=== PATIENT | male | born 1955 | race Caucasian/White ===

== ENCOUNTER 2024-04-20 06:30 | Day surgery (SDC) | payer BC, SELFPAY ==
[2024-03-20 10:24] VITALS: BMI 25.4
[2024-03-20 10:33] LABS: Hematocrit 41.6 % (39.0-52.0); Hemoglobin 14.5 g/dL (13.0-18.0); Mean Corp Hgb Conc. 34.9 g/dL (33.0-37.0); Mean Corpuscular Hgb 30.1 pg (27.0-31.0); Mean Corpuscular Volume 86.3 fL (80.0-94.0); Mean Platelet Volume 9.2 fL (7.4-10.4); Platelet Count 293 10^3/uL (130-400); Red Blood Cell Count 4.82 10^6/uL (4.70-6.10); Red Cell Dist. Width 13.8 % (11.5-14.5); White Blood Cell Count 5.7 10^3/uL (4.8-10.8)
[2024-03-20 10:56] LABS: ALT (SGPT) 22 U/L (0-50); AST (SGOT) 22 U/L (17-59); Albumin 4.2 g/dl (3.5-5.0); Alkaline Phosphatase 73 U/L (38-126); Blood Urea Nitrogen 19 mg/dl (9-20); Calcium 9.3 mg/dl (8.4-10.2); Carbon Dioxide 24 mmol/L (22-30); Chloride 104 mmol/L (98-107); Estimated Creatinine Clearance 104 ml/min; Glucose 98 mg/dl (70-99); Potassium 4.1 mmol/L (3.5-5.1); Sodium 141 mmol/L (135-145); Total Bilirubin 0.6 mg/dl (0.2-1.3); eGFR > 60.00
[2024-03-20 11:56] LABS: Glycohemoglobin (HgbA1c) 5.3 % (4.0-5.6)
--- NOTE | 2024-04-06 12:28 | VNURNOTE ---
Patient is scheduled for an elective R TKA on 04/20/24- he is a same day patient with Dr Taylor. Spoke with patient prior to surgery. Introduced role of [facility] Liaison. Patient reports that he lives with his in a MULTI story home.
There are 2 steps to enter and a flight of steps to the second floor.
There is a bathroom on the charge entry. He currently functions independently. He will be getting a rolling walker and has a cane.
PCP is Dr Raines
Discussed [facility] joint protocol and post surgical plans.
Reviewed that he will have [facility] services initially and will then start outpatient PT.
Patient selects [facility] for his home care needs and will go to out pt PT on [address] for outpatient PT. Start date TBD.
Patient is in agreement with plan and states that his will be home with him. Advised to bring RW with him day of surgery. Referral placed in [facility].
Plan: [facility] per [facility] joint protocol then outpt PT
[2024-04-14 09:34] VITALS: BMI 25.4
[2024-04-20] VITALS (15 sets, daily range): BP systolic 125–159; BP diastolic 76–98; PULSE 92; O2SAT 98
--- NOTE | 2024-04-20 07:12 | W.DS.TRANS ---
DC Summary - Crm Administrator
-
Discharge Instructions:
Sleep Apnea Risk Low
Discharge Diagnosis/Procedures R TKA Dr. Taylor 04/20/24
Diet As tolerated
Activity With Walker
Driving Restrictions No driving
Bathing Restrictions OK to Shower
Other Services PT
Instructions:
Stand-Alone Forms: SDS Total Hip and Knee D/C
Changes to Home Medications: Yes
Discharge Medications:
DC Medications w/original date entered in [employer]
Co Q-10 1 dose PO DAILY 04/14/24
Joseph Revive Tumeric, Cucermin 1 dose PO DAILY 04/14/24
mupirocin 2 % topical ointment 1 applic topical BID 04/14/24
vit C-vit I-[id number] capsule 1 cap PO DAILY 04/14/24
acetaminophen 325 mg tablet (Tylenol) 650 mg (2 x 325 mg) PO QID #1 tab 04/20/24
aspirin 325 mg tablet 325 mg PO DAILY blood clot prevention #1 tab 04/20/24
dexamethasone 4 mg tablet 4 mg PO BID inflammation #6 tabs 04/20/24
docusate sodium 100 mg capsule (Colace) 100 mg PO BID stool softner #1 cap 04/20/24
magnesium hydroxide 400 mg/5 mL oral suspension (Milk of Magnesia) 30 ml PO HS PRN Constipation #1 mL 04/20/24
ondansetron 4 mg disintegrating tablet 4 mg PO Q6H PRN n/v #20 tabs 04/20/24
oxycodone 5 mg tablet 5 mg PO Q6H PRN 1 tab moderate pain, 2 tabs severe pain #30 tabs 04/20/24
sennosides 8.6 mg tablet (Senokot) 17.2 mg (2 x 8.6 mg) PO BID laxative #2 tabs 04/20/24
Home Medication Changes
aspirin 325 mg tablet 325 mg PO DAILY blood clot prevention #1 tab 04/20/24
dexamethasone 4 mg tablet 4 mg PO BID inflammation #6 tabs 04/20/24
docusate sodium 100 mg capsule (Colace) 100 mg PO BID stool softner #1 cap 04/20/24
magnesium hydroxide 400 mg/5 mL oral suspension (Milk of Magnesia) 30 ml PO HS PRN Constipation #1 mL 04/20/24
ondansetron 4 mg disintegrating tablet 4 mg PO Q6H PRN n/v #20 tabs 04/20/24
oxycodone 5 mg tablet 5 mg PO Q6H PRN 1 tab moderate pain, 2 tabs severe pain #30 tabs 04/20/24
sennosides 8.6 mg tablet (Senokot) 17.2 mg (2 x 8.6 mg) PO BID laxative #2 tabs 04/20/24
Pending Results: No
[2024-04-20] MEDS: TYLENOL 650 MG PO (07:21)
[2024-04-20] MEDS: CELEBREX 200 MG PO (07:21)
[2024-04-20] MEDS: DILAUDID 0.5 MG IV ×4 (11:48→12:30)
[2024-04-20] MEDS: DEMEROL 12.5 MG IV (11:54)
[2024-04-20] MEDS: ANCEF 5 IV (13:27)
[2024-04-20] MEDS: ROXICODONE 5 MG PO (13:29)
[2024-04-20] MEDS: ProAmatine 5 MG PO (14:52)
[2024-04-20] MEDS: FLOMAX 0.8 MG PO (14:52)
[2024-04-20] MEDS: LASIX 10 MG IV (14:53)
--- NOTE | 2024-04-20 19:38 | OR.RPT ---
Operative Report
Operative Report
Orthopaedic Surgery Operative Note
DATE OF OPERATION: 04/20/2024
PREOPERATIVE DIAGNOSES: Osteoarthritis, right knee; bone cyst right proximal tibia
POSTOPERATIVE DIAGNOSES: Same
OPERATION PERFORMED:
1) Right total knee arthroplasty (CPT 77037)
2) Intraosseous administration of analgesic (CPT 73969)
3) Autograft bone cyst proximal tibia
4) Debridement of proximal tibia synovial cyst
SURGEON: Chadwick Taylor MD
ASSISTANTS: Timothy Nascimento who helped with patient and limb positioning and retraction
ANESTHESIA: Spinal by anesthesia plus intraoperative infusion of morphine into the tibial metaphysis by Dr. Taylor
COMPLICATIONS: None.
ESTIMATED BLOOD LOSS: 30mL
DRAINS: None
TOURNIQUET TIME: 82 minutes.
IMPLANTS:
- Min Persona CR Femur, size 12
- Min Persona revision tibia base plate, size G
- Min Persona tibial stem, 75mm
- Min Persona ultracongruent articular surface, 12 mm
- All-polyethylene patellar component, size 35
- DJO [place] bone cement
INDICATIONS: The patient presented to my office with debilitating right knee pain due to osteoarthritis. We reviewed the natural history of this problem, as well as the risks, benefits, and alternatives of various treatment options. The patient
exhausted all nonoperative treatment options and wished to proceed with knee replacement surgery. The patient understood the risks which included, but were not limited to, bleeding, infection, failure to relieve pain, more pain than preop, damage to
blood vessels and nerves, need for reoperation, mechanical failure of the implants, wound healing problems, stiffness, instability, blood clot, pulmonary embolism, myocardial infarction, pneumonia, arrhythmia, CVA, and . The patient accepted
these risks and wished to proceed. All questions were answered, and informed consent was obtained. He was noted to have a cyst in the lateral tibia. MRI showed this to be c/w synovial cyst. Preoperative plan was to bypass this with a stem.
PROCEDURE IN DETAIL: The patient was identified in the preoperative holding area. The right knee was identified as the operative site. The patient was taken in the operating room and placed in a supine position on the operating table. Spinal
anesthesia was performed. IV antibiotics and tranexamic acid were administered. An SCD was placed on the left lower extremity. A well-padded tourniquet was placed on the proximal thigh. All bony prominences were well padded. The right lower
extremity was prepped and draped in the usual sterile fashion.
We performed a surgical time-out. An interarticular block was performed with local anesthetic with epinephrine. The limb was exsanguinated with an Esmarch bandage, then the tourniquet was inflated to 250 mmHg. I performed interosseous administration
of morphine-saline solution via a Jamshidi style intraosseous needle into the proximal medial tibial metaphysis as described by Keenan Ann MD. This was performed to aid in pain control. A midline skin incision was made followed by a medial
parapatellar arthrotomy. A subperiosteal peel was performed on the medial tibia. I excised part of the infrapatellar fat pad to improve our visualization as well as tissue over anterior femur. The patella was everted and the knee was flexed. I
excised the remnants of the anterior and posterior cruciate ligaments as well as tibial and femoral osteophytes with rongeurs.
A drill was used to open the femoral canal. The intramedullary distal femoral cutting guide was inserted into the femur. This was set at 5 degrees +0. This was secured into place with three pins. The cut level was checked with an latosha wing. The
distal femur was cut through the cutting guide. The IM guide was reinserted to double check that the level of resection was flush and in appropriate alignment. Lamar�s line and the transepicondylar axis were marked on the femur. The femoral
sizing guide was applied to the anterior femur. Pins were inserted, and the 4-in-1 cutting guide was applied and secured into place. The rotation was compared to Amada�s line, the transepicondylar axis, and the neutral tibia cut and was found to
be appropriate. The width was checked and found to be appropriate and lateralized on the femur. The anterior, posterior, and chamfur cuts were made.
The knee was flexed, and the extramedullary tibial cutting guide was aligned. [place] was aligned at neutral, rotation was centered on the tibial tubercle, and coronal alignment was aligned with the mechanical axis of the tibia and center of the ankle
joint. The cut height was 2mm off the medial tibia joint surface. The guide was secured into place. The MCL and LCL were protected. The tibia surface was cut. The cut surface was inspected after removal to ensure appropriate height and slope based
on the preoperative plan. The cut was checked with a drop jeremy. It was centered nicely at the ankle.
The tibial cyst was identified. It extended about 4cm deep and about 3cm wide. There was a small uncontained portion distally. Decision was made to debride and bone graft this area. The cyst was debrided with rongure and curette. The sclerotic rim
was drilled with a small drill. Autograft from the cut bone pieces from femur and tibia were obtained and made into small crutons with a rongure and bone cutter. These were gently impacted throughout the graft with a bone tamp. This turned the
uncontained defect into a contained defect.
A lamina mold capper was used to open the flexion gap, and posterior osteophytes were removed with a curved osteotome. The remnant medial and lateral meniscus were also removed. I prophylactically cauterized the lateral geniculate arteries. A 10mm
spacer block was applied to the flexion gap and was noted to be balanced medially and laterally. The knee was extended, and the block showed symmetric to extension and flexion gaps.
The tibia was exposed and sized. Rotation was set in line with the tibial tubercle and congruent with the femur. The trial was secured into place with two pins. The tibia was prepared for a 75mm stem. The trial femur was impacted into place, and a
trial articular surface was placed. The knee was taken through range of motion and noted to be stable throughout the arc of motion without gaping or excess tension. In extension, a measured resection of the patella was performed. The patella was
sized, and lug holes were drilled. A trial patella component was applied, and it was noted to track centrally throughout the arc of motion without need for further releases.
The trials were removed. The tibia keel was prepared with the punch and the drill. The bone surfaces were irrigated with sterile saline and dried. The cement was mixed in a vacuum mixer. A cement restrictor was applied to tibial canal. Cement gun
was used to apply cement to the tibial surface, the remaining portion of the cyst, and the undersurface of the tibial implant and stem. Cement was pressurized into the tibial canal and tibia surface. The tibial component was impacted into place.
Excess cement was removed. Cement was applied to the femoral surface and the femoral component. The femoral component was impacted into place, and excess cement removed. A trial articular surface was inserted, and the knee was extended while the
cement polymerized. The tourniquet was let down, and meticulous hemostasis was achieved. Dilute betadine was poured into the wound and allowed to soak for 3 minutes. The knee was irrigated with copious normal saline.
Once the cement was polymerized, the trial articular surface was removed. Any excess cement was removed. The knee was trialed, and the final articular surface was selected and inserted into the tibial locking mechanism. The knee was reduced. A fresh
drape was applied to the surgical field.
The arthrotomy was closed with 0-PDS. Once closed, an interarticular block was performed with local anesthetic with epi. The deep dermal layer was closed with 2-0 PDS, and the subcuticular skin was closed with 3-0 monocryl. A Dermabond Prineo
dressing was applied to the skin in full flexion. Once this was completely dry, a sterile waterproof dressing was applied.
The anesthesia team performed an adductor canal block in the OR. The patient awoke from anesthesia without any difficulties. The sponge and instrument counts were correct x2 at the end of the case.
Maynor Taylor MD
== END 2024-04-20 15:32 | disposition home or self-care (01) ==
LOC: SDS 06:30
PROVIDERS: ATTENDING PHYSICIAN Orthopaedic Surgery; FAMILY PHYSICIAN Family Medicine
DX: M17.11 Unilateral primary osteoarthritis, right knee (principal); M85.461 Solitary bone cyst, right tibia and fibula
CPT/HCPCS: 27447; C1776; 36415; 73560; 80053; 83036; 85027; 87070; 93005; 97162

== ENCOUNTER → 2024-11-23 11:04 | Outpatient (REF) | payer BC, SELFPAY ==
[2024-11-23 16:41] LABS: Hematocrit 44.4 % (39.0-52.0); Hemoglobin 14.5 g/dL (13.0-18.0); Mean Corp Hgb Conc. 32.7 g/dL (33.0-37.0); Mean Corpuscular Volume 92.3 fL (80.0-94.0); Nucleated Red Blood Cells % 0 % (-); Platelet Count 314 10^3/uL (130-400); Red Cell Dist. Width 14.5 % (11.5-14.5)
[2024-11-23 16:53] LABS: ALT (SGPT) 22 U/L (0-50); AST (SGOT) 23 U/L (17-59); Albumin 4.4 g/dl (3.5-5.0); Alkaline Phosphatase 82 U/L (38-126); Blood Urea Nitrogen 19 mg/dl (9-20); Calcium 8.9 mg/dl (8.4-10.2); Carbon Dioxide 22 mmol/L (22-30); Chloride 107 mmol/L (98-107); Glucose 107 mg/dl (70-99); HDL Cholesterol 47 mg/dl; LDL Cholesterol, Calculated 156 mg/dl; Potassium 4.0 mmol/L (3.5-5.1); Sodium 139 mmol/L (135-145); Total Protein 7.3 g/dl (6.3-8.2); Very Low Density Lipoprotein 13 mg/dl (0-30); eGFR > 60.00
[2024-11-23 17:00] LABS: Urine Character Clear (Clear)
[2024-11-23 17:22] LABS: TSH 0.80 uIU/ml (0.47-4.68)
[2024-11-23 17:34] LABS: Urine Red Blood Cell 0-2 /HPF (0-2); Urine White Cell 0-2 /HPF (0-5)
[2024-11-24 07:40] LABS: Glycohemoglobin (HgbA1c) 5.5 % (4.0-5.6)
[2024-11-26 20:40] LABS: CCP Antibody IgG/IgA 5 Units (0-19)
[2024-11-27 12:47] LABS: Rheumatoid Agglutinin Less Than 10 IU (<10 IU)
== END ==
LOC: CLAB 11:04
PROVIDERS: ATTENDING PHYSICIAN Student in an Organized Health Care Education/Training Program
DX: M06.9 Rheumatoid arthritis, unspecified (principal); R73.01 Impaired fasting glucose; Z87.891 Personal history of nicotine dependence; R03.0 Elevated blood-pressure reading, without diagnosis of hypertension
CPT/HCPCS: 36415; 80053; 80061; 81003; 81015; 83036; 84439; 84443; 85025; 86200; 86430

== ENCOUNTER → 2024-11-28 07:18 | Outpatient (REF) | payer BC, SELFPAY | LOC: HWRAD 07:18 | PROVIDERS: ATTENDING PHYSICIAN Student in an Organized Health Care Education/Training Program | DX: Z87.891 Personal history of nicotine dependence (principal) | CPT/HCPCS: 71271; 76770 ==

== ENCOUNTER 2025-01-24 17:32 | Emergency (ER) | payer BC, MEDICARE, SELFPAY ==
[2025-01-24 17:34] VITALS: BP 141/85
[2025-01-24 18:07] VITALS: BMI 25.8
--- NOTE | 2025-01-24 18:11 | ED.MUSCINJ ---
HPI-Injury
General
Chief Complaint: Extremity Pain (non-traumatic)
Source: patient
Exam Limitations: none
Time Seen by Provider: 01/24/25 18:06
Nursing documentation reviewed up to this point in time: agreed with
History of Present Illness-Injury
Is this injury a work related problem?: No
Is pt an associate of [facility]/[place]?: No
Initial Injury comments:
Patient to ED wtih complaint of left ankle and foot pain and swelling. Symptoms started approx 2 weeks ago but worsened over the past few day. Seen by PCP today and advised to come to ED. Denies fever/chills. No recent trauma. TO ED accompanied
by spouse
Past History
Past History
ED Past Medical History: None
ED Past Surgical History: None
Social History
Tobacco: Smoker
Alcohol: Occasional
Personal:
Living: with family
Employment: Employed
Review of Systems
Review of Systems
Allergies reviewed?: Yes
All Other Systems: ROS reviewed and negative except as documented in HPI and ROS
Constitutional: Reports no symptoms
EENT: Reports no symptoms
Respiratory: Reports no symptoms
Cardiac: Reports no symptoms
ABD/GI: Reports no symptoms
Musculoskeletal: Reports joint pain (pain and swelling left foot and ankle.)
Skin: Reports no symptoms
Neurological: Reports no symptoms
Psychiatric: Reports no symptoms
Musculoskeletal Injury Exam
Musculoskeletal Injury Exam
Left Foot:
Pain with Movement?: Mild
Tender to palpation?: Mild
Soft tissue swelling?: Moderate
External deformity and angulation?: None
Joint effusion?: None
Contusion?: None
Hematoma-local bleeding into tissue?: None
Strain- Sprain- Tear (Connective tissue injury)?: None
Crepitus with movement?: No
Joint instability?: No
Malalignment/deformity?: No
Range of motion: Full
Distal skin color and temperature: normal-warm & good color
Capillary Refill: normal
Normal distal neurovascular exam?: Yes
Peripheral Pulses: posterior tibial (left): 3+ and dorsalis pedis (left): 3+
Left Ankle:
Pain with Movement?: Mild
Tender to palpation?: Mild
Soft tissue swelling?: Moderate
External deformity and angulation?: None
Joint effusion?: None
Contusion?: None
Hematoma-local bleeding into tissue?: None
Strain- Sprain- Tear (Connective tissue injury)?: None
Crepitus with movement?: No
Joint instability?: No
Malalignment/deformity?: No
Range of motion: Limited
Distal skin color and temperature: normal-warm & good color
Capillary Refill: normal
Normal distal neurovascular exam?: Yes
Peripheral Pulses: posterior tibial (left): 3+ and dorsalis pedis (left): 3+
Phy Exam
General Physical Exam
General Presentation: well appearing and no apparent distress
General age: appears stated age
General Skin: warm and dry
General Habitus: normal
General Mental: alert
General Hydration: appears well hydrated
Musculoskeletal Exam
Musculoskeletal Exam: neuro vasc intact and other (moderate swelling to left foot and ankle. No pain to palpation)
Skin Exam
Skin Exam: normal color, warm/dry and no rash
Psychiatric Exam
Psychiatric Exam: normal mood/affect
Injury Course
Orders/Labs/Results
Orders:
Orders
01/24/25 18:09
Ankle, left 3 view CR [CR Ankle - Left Min 3 Views ] Urgent
Comment:
Reason For Exam: pain, swelling
Foot, Left 3 View [CR Foot - Left Min 3 Views] Urgent
Comment:
Reason For Exam: pain, swelling
US Periph Venous LOWER Ext LT Urgent
Comment:
Reason For Exam: pain, swelling
*Radiology
Radiology exam reviewed: radiology read reviewed
*Pulse Oximetry
SaO2: 97
Oxygen Mode of Delivery: Room air
Patient hypoxic: no
*Critical Care Note
Total Time (30-74mins, 75-104mins- exclusive of procedures): Not Applicable
Update Note
Update Note:
Patient to ED for eval of swelling to left foot and ankle. No new trauma to foot/ankle. US neg for DVT, xrays neg for fracture. Neurovascularly intact. Ambulating without difficulty. Discussed radiology reports with patient and spouse. WIll
discharge home, will followup with PCP. Given instructions on s/s to return to ED and he is agreeable to plan.
ED Attending Note
-
Portions of this chart may have been created with voice recognition software.� Occasional wrong word or��sound alike� substitutions may have occurred due to the inherent limitations of voice recognition software.
Discharge Plan
Departure
Patient Disposition: Home (Routine Discharge)
Date of Disposition: 01/24/25
Time of Disposition: 20:40
Patient with high blood pressure during this ER visit?: No
Condition: Good
Covid-19: Not Applicable
Discharge Problem:
Ankle swelling, Foot swelling
Instructions: Swollen Joints (DC), RICE Therapy
Prescriptions:
No Action
vit C-vit B-[id number] Capsule
1 cap PO DAILY
Co Q-10
1 dose PO DAILY
Joseph Revive Tumeric, Cucermin
1 dose PO DAILY
mupirocin 2 % Ointment
1 applic TOPICAL BID
Rx Instructions:
Patient started applying this medication on 04/20/24 in the evening.
sennosides [Senokot] 8.6 mg tablet
17.2 mg PO BID Qty: 2 0RF
acetaminophen [Tylenol] 325 mg tablet
650 mg PO QID Qty: 1 0RF
Rx Instructions:
SCHEDULED DOSING
aspirin 325 mg tablet
325 mg PO DAILY Qty: 1 0RF
Rx Instructions:
Take with food
magnesium hydroxide [Milk of Magnesia] 400 mg/5 mL suspension
30 ml PO HS PRN (Reason: Constipation) Qty: 1 0RF
dexamethasone 4 mg tablet
4 mg PO BID Qty: 6 0RF
Rx Instructions:
take with food
post-op use only
docusate sodium [Colace] 100 mg capsule
100 mg PO BID Qty: 1 0RF
ondansetron [ondansetron] 4 mg tablet,disintegrating
4 mg PO Q6H PRN (Reason: n/v) Qty: 20 0RF
Rx Instructions:
take 1/2h b/f pain med if recurrent nausea
allow to dissolve in mouth w/o water
oxycodone 5 mg tablet
5 mg PO Q6H PRN (Reason: 1 tab moderate pain, 2 tabs severe pain) Qty: 30 0RF
Rx Instructions:
Ongoing therapy
Referrals:
Shravan Bowman MD, Resident [Family Provider, General] - Follow up in 2-3 days
Activity Restrictions/Additional Instructions:
Return to the emergency department immediately for any changes in/worsening of your symptoms
Interventions
Interventions:
*Risk Screen - Suicide Last Done: 01/24/25 18:09
*General Assessment Last Done: 01/24/25 18:07
*Neglect/Abuse Screening Last Done: 01/24/25 18:09
*ED- Fall Risk Assessment Last Done: 01/24/25 18:07
*ED COVID-19 Vaccine History Last Done: 01/24/25 18:07
*Nursing Disposition Last Done: 01/24/25 20:46
ED-Skin Assessment Last Done: 01/24/25 18:09
ED-Peripheral Vascular Assessment Last Done: 01/24/25 18:09
ED-Musculoskeletal Assessment Last Done: 01/24/25 18:09
Discharge Date and Time
Discharge Date/Time: 01/24/25 20:46
Print Language: SPANISH
[2025-01-24 20:00] VITALS: BP 134/78
[2025-01-24 20:46] VITALS: BP 121/74
== END 2025-01-24 20:46 | disposition home or self-care (01) ==
LOC: EMR 17:32
PROVIDERS: EMERGENCY PHYSICIAN Emergency Medicine; FAMILY PHYSICIAN Student in an Organized Health Care Education/Training Program
DX: R22.42 Localized swelling, mass and lump, left lower limb (principal); F17.200 Nicotine dependence, unspecified, uncomplicated
CPT/HCPCS: 99284; 73610; 73630; 93971